=== PATIENT | female | born 1950 | race Two or more races ===

== ENCOUNTER 2023-12-22 09:34 | Emergency (ER) | payer MEDICARE, OTHER ==
[~2023-12-22] VITALS: Ht 154.9 cm; Wt 70.3 kg
[2023-12-22 09:40] VITALS: TEMP 97.4
[2023-12-22 11:19] VITALS: BP 133/69; O2SAT 97
== END 2023-12-22 11:18 | disposition home or self-care (01) ==
LOC: ER 09:57
DX: I10 Essential (primary) hypertension (principal); Z60.2 Problems related to living alone

== ENCOUNTER 2023-12-22 20:38 | Emergency (ER) | payer MEDICARE, OTHER ==
[~2023-12-22] VITALS: Ht 167.6 cm; Wt 77.1 kg
[2023-12-22 22:34] VITALS: BP 153/74; TEMP 98; O2SAT 97
== END 2023-12-22 22:35 | disposition home or self-care (01) ==
LOC: ER 20:45
DX: F41.9 Anxiety disorder, unspecified (principal); I10 Essential (primary) hypertension; Z60.2 Problems related to living alone